=== PATIENT | female | born 1975 | race Two or more races ===

== ENCOUNTER 2025-02-03 16:16 | Emergency (ER) | payer BC, OTHER ==
[~2025-02-03] VITALS: Ht 152.4 cm; Wt 49.8 kg
--- NOTE | 2025-02-03 16:50 | ED.PDOC ---
Back pain HPI HPI Comments A 50 year old female presents to the ED c/o right hip pain that radiates down right leg. Patient states she has been experiencing right-sided lower back pain that radiates down to her right knee for the past 3 months. Patient reports her pain is worse with movement. Patient notes she has been prescribed Alpine 5/325mg and prednisone for her pain from an urgent care, but states there has been no improvement. Denies history of osteoporosis Denies any history of cancer Denies fevers chills night sweats nausea vomiting unintentional weight loss Denies IV drug use history of HIV/TB Denies abdominal "tearing" pain Denies syncope Denies urinary incontinence, saddle anesthesia, bowel incontinence, or urinary changes Denies numbness tingling of the groin or inner thigh Denies previous back procedure or surgery Chief Complaint: Lower Extremity Time Seen by MD: 16:29 Reviewed Notes: Nurses Notes, Medications, Allergies Allergies: Coded Allergies: NO KNOWN ALLERGIES (Unverified , 02/03/25) Information Source: Patient Mode of Arrival: Ambulatory Timing: Days Duration: Since onset, Days Location of Back pain: (R) Lumbar Radiates to: Anterior: (R) Buttocks, (R) Calf, (R) Thigh Radiates to: Posterior: (R) Buttocks, (R) Thigh Radiates to: Medial: (R) Buttocks, (R) Thigh Radiates to: Lateral: (R) Buttocks, (R) Thigh Severity: Moderate Prehospital treatment: None Quality: Aching, Cramping Onset: Spontaneous History of: None Modifying Factors: Movement Associated signs and symptoms: None Past Medical History PAST MEDICAL HISTORY: Denies Surgical History: Denies all surgeries TOOL MARKER History: No Pertinent TOOL MARKER History Family History Family History: Reviewed,noncontributory to illness Social History Smoker: Non-Smoker Alcohol: Denies ETOH Use Drugs: Denies Drug Use Lives In: Home Constitutional: denies: chills, diaphoresis, fatigue, fever, malaise, sweats, weakness, others EENTM: denies: blurred vision, double vision, ear bleeding, ear discharge, ear drainage, ear pain, ear ringing, eye pain, eye redness, hearing loss, mouth pain, mouth swelling, nasal discharge, nose bleeding, nose congestion, nose pain, photophobia, tearing, throat pain, throat swelling, voice changes, others Respiratory: denies: cough, hemoptysis, orthopnea, SOB at rest, shortness of breath, SOB with excertion, stridor, wheezing, others Cardiovascular: denies: chest pain, dizzy spells, diaphoresis, Dyspnea on exertion, edema, irregular heart beat, left arm pain, lightheadedness, palpitations, PND, syncope, others Gastrointestinal: denies: abdomen distended, abdominal pain, blood streaked bowels, constipated, diarrhea, dysphagia, difficulty swallowing, hematemesis, melena, nausea, poor appetite, poor fluid intake, rectal bleeding, rectal pain, vomiting, others Genitourinary: denies: abnormal vagina bleeding, burning, dyspareunia, dysuria, flank pain, frequency, hematuria, incontinence, pain, , vagina discharge, urgency, others Neurological: denies: dizziness, fainting, headache, left sided numbness, left sided weakness, numbness, paresthesia, pre-existing deficit, right sided numbness, right sided weakness, seizure, speech problems, tingling, tremors, weakness, others Musculoskeletal: reports: others (right hip pain that radiates down to right knee); denies: back pain, gout, joint pain, joint swelling, muscle pain, muscle stiffness, neck pain Integumetry: denies: bruises, change in color, change in hair/nails, dryness, laceration, lesions, lumps, rash, wounds, others Allergic/Immunocompromised: denies: Difficulty Healing, Frequent Infections, Hives, Itching, others Hematologic/Lymphatic: denies: anemia, blood clots, easy bleeding, easy bruising, swollen glands, others Endocrine: denies: excessive hunger, excessive sweating, excessive thirst, excessive urination, flushing, intolerance to cold, intolerance to heat, unexplained weight gain, unexplained weight loss, others Psychiatric: denies: anxiety, bipolar disorder, depression, hopeless, panic disorder, schizophrenia, sleepless, suicidal, others All Other Systems: Reviewed and Negative Physical Exam General Appearance: No Apparent Distress, Normal HEENT: Normal ENT Inspection, Pharynx Normal, TMs Normal Neck: Full Range of Motion, Non-Tender, Normal, Normal Inspection Respiratory: Chest Non-Tender, Lungs Clear, No Accessory Muscle Use, No Respiratory Distress, Normal Breath Sounds Cardiovascular: No Edema, No JVD, No Murmur, No Gallop, Normal Peripheral Pulses, Regular Rate/Rhythm Breast Exam: Deferred Gastrointestinal: No Organomegaly, Non Tender, No Pulsatile Mass, Normal Bowel Sounds, Soft Genitalia: Deferred Pelvic: Deferred Rectal: Deferred Extremities: No calf tenderness, Normal capillary refill, Normal inspection, Normal range of motion, Non-tender, No pedal edema Musculoskeletal : Location: Right Extremity Location: Back (No L-spine TTP noted. Normal neuro exam.), Leg (Right straight leg test positive.) Apperance: Normal Neurologic: Alert, sales and merchandising associate II-XII nml as Tested, No Motor Deficits, Normal Affect, Normal Mood, No Sensory Deficits Cerebellar Function: Normal Reflexes: Normal Skin: Dry, Normal Color, Warm Lymphatic: No Adenopathy Was a procedure done? Was a procedure done?: No Back Pain Differential Dx Differential Diagnosis: DJD, Musculoskeletal Pain, Strain Other Differential Diagnosis DDD, lumbar radiculopathy, sciatica X-Ray, Labs, Meds, VS Vital Signs Date Time Temp Pulse Resp B/P (MAP) Pulse Ox O2 Delivery O2 Flow Rate FiO2 02/03/25 17:42 100 20 96 Room Air 02/03/25 17:42 98.2 100 20 148/92 (110) 96 98.2 02/03/25 16:25 97.7 119 18 150/84 (106) 95 97.7 Current Medications Medications (Trade) Dose Ordered Sig/Hammad Route Start Time Stop Time Status Last Admin Methylprednisolone Sodium Succinate (Solu Medrol) 125 mg ONCE ONCE IM 02/03/25 16:45 02/03/25 16:48 DC 02/03/25 17:44 Ketorolac Tromethamine (Toradol Injection) 60 mg ONCE ONCE IM 02/03/25 16:45 02/03/25 16:48 DC 02/03/25 17:44 Right lower extremity venous duplex Clinical History: Leg pain Comparison: None Technique: Duplex Doppler evaluation of the deep venous system of the right lower extremity from the common femoral vein to the popliteal vein including color Doppler and spectral/pulsed waveform analysis was performed. Findings: The common femoral vein demonstrates appropriate compressibility and waveform variability. There is compressibility/patency of the great saphenous vein at the proximal thigh. The femoral vein demonstrates appropriate compressibility and waveform variabil ity. The deep femoral vein demonstrates appropriate compressibility and waveform variability. The popliteal vein demonstrates appropriate compressibility and waveform variability. There is normal compressibility at the tibioperoneal trunk. Impression: 1. No right femoropopliteal venous thrombosis. ATED BY: YANE CHRISTIAN MD DICTATED DATE/TIME: 02/03/251734 SIGNED BY: YANE CHRISTIAN MD SIGNED DATE/TIME: 02/03/251734 CC: EXAM: XY R FEMUR XRAY CLINICAL HISTORY: R/o fracture COMPARISON: None TECHNIQUE: XY R FEMUR XRAY Findings/Impression: 2 views of the right femur. There is no evidence of an acute fracture, dislocation, blastic, or lytic lesions. No radiopaque foreign bodies. No superficial soft tissue abnormalities. ATED BY: GEMMA NAVAS DO DICTATED DATE/TIME: 02/03/251736 SIGNED BY: GEMMA NAVAS DO SIGNED DATE/TIME: 02/03/251736 CC: X-Ray, Labs, Meds, VS Comment A 50 year old female presents to the ED c/o right hip pain that radiates down right leg. Patient arrives alert and oriented, ABC's intact, afebrile, vital signs stable, saturating well in room air Diagnostic imaging ordered by me and results interpreted by radiology : XR L-spine: CV venous Doppler low ext RT: Patient was given Toradol 60mg IM and Solu-Medrol 125mg IM. Tolerated med ications with no adverse reaction. Additional MDM Review of External, Non-ED records: External records reviewed. Discussion with independent historian history obtained from the patient Chronic conditions affecting care: None Social determinants of health affecting care: None Consideration of admission (observation or admission): I considered escalation of care to admission for this patient, however given the reassuring workup, the patient is safe for outpatient management. Discussion with the Radiology: No Tests considered but not performed: None Prescription medication given: Images Reviewed?: Images reviewed and evaluated by me Reevaluation 1ST: Improved Patient Education/Counseling: Diagnosis, Treatment, Need For Follow Up Family Education/Counseling: Diagnosis, Treatment, Need For Follow Up SEPSIS Sepsis Screen Physician Orders Rt Lower Dvt (02/03/25 16:45) R Femur Xray (02/03/25 16:45) Vital Signs Date Time Temp Pulse Resp B/P (MAP) Pulse Ox O2 Delivery O2 Flow Rate FiO2 02/03/25 17:42 100 20 96 Room Air 02/03/25 17:42 98.2 100 20 148/92 (110) 96 98.2 02/03/25 16:25 97.7 119 18 150/84 (106) 95 97.7 Medications Medications Dose Ordered Sig/Hammad Route Start Time Stop Time Status Last Admin Dose Admin Ketorolac Tromethamine 60 mg ONCE ONCE IM 02/03/25 16:45 02/03/25 16:48 DC 02/03/25 17:44 Methylprednisolone Sodium Succinate 125 mg ONCE ONCE IM 02/03/25 16:45 02/03/25 16:48 DC 02/03/25 17:44 Departure 1 Departure Time of Disposition: 17:52 Impression: Primary Impression: Lumbar radiculopathy Disposition: HOME / SELF CARE / HOMELESS Condition: Stable Additional Instructions: Follow up with PCP in 1-2 days. Take medications as prescribed. Return to ED for any new or worsening symptoms. e-Prescriptions Naproxen (Naproxen) 500 Mg Tab 500 MG PO BIDPC for 14 Days, #28 TAB 0 Refills Prov: JHONATAN MARTINEZ SKILL TRAINING PROGRAM COORDINATOR 02/03/25 Discharged With: Self Critical Care Note Critical Care Time?: No Stability Stability form required: No I personally scribed for JHONATAN MARTINEZ SKILL TRAINING PROGRAM COORDINATOR ([email or web address]) on 02/03/25 at 16:50. Electronically submitted by Manohar Abraham ([employer]). I personally scribed for JHONATAN MARTINEZ SKILL TRAINING PROGRAM COORDINATOR ([email or web address]) on 02/03/25 at 17:28. Electronically submitted by Manohar Abraham ([email or web address]). I personally scribed for JHONATAN MARTINEZ SKILL TRAINING PROGRAM COORDINATOR ([email or web address]) on 02/03/25 at 17:40. Electronically submitted by Manohar Abraham ([employer]). I personally scribed for JHONATAN MARTINEZ SKILL TRAINING PROGRAM COORDINATOR ([email or web address]) on 02/03/25 at 17:42. Electronically submitted by Manohar Abraham ([employer]). JHONATAN MARTINEZ SKILL TRAINING PROGRAM COORDINATOR Feb 03, 2025 16:50
--- NOTE | 2025-02-03 17:37 | DVH ---
Right lower extremity venous duplex Clinical History: Leg pain Comparison: None Technique: Duplex Doppler evaluation of the deep venous system of the right lower extremity from the common femo ral vein to the popliteal vein including color Doppler and spectral/pulsed waveform analysis was perf ormed. Findings: The common femoral vein demonstrates appropriate compressibility and waveform variability. There is compressibility/patency of the great saphenous vein at the proximal thigh. The femoral vein demonstrates appropriate compressibility and waveform variability. The deep femoral vein demonstrates appropriate compressibility and waveform variability. The popliteal vein demonstrates appropriate compressibility and waveform variability. There is normal compressibility at the tibioperoneal trunk. Impression: 1. No right femoropopliteal venous thrombosis.
--- NOTE | 2025-02-03 17:40 | DVH ---
EXAM: XY R FEMUR XRAY CLINICAL HISTORY: R/o fracture COMPARISON: None TECHNIQUE: XY R FEMUR XRAY Findings/Impression: 2 views of the right femur. There is no evidence of an acute fracture, dislocation, blastic, or lytic lesions. No radiopaque foreign bodies. No superficial soft tissue abnormalities.
[2025-02-03 17:42] VITALS: BP 148/92; PULSE 100; RESP 20; TEMP 98.2; O2SAT 96
[2025-02-03] MEDS: methylPREDNISolone SOD SUCC 125 MG/2 ML VL IM ONE (17:44)
[2025-02-03] MEDS: KETOROLAC TROMETH 60MG/2ML VIAL IM ONE (17:44)
[2025-02-03] MEDS ORDERED: NAPR-746 PO (17:58)
== END 2025-02-03 18:05 | disposition home or self-care (01) ==
LOC: ER 16:16
DX: M54.16 Radiculopathy, lumbar region (principal); M25.551 Pain in right hip
CPT/HCPCS: 73552; 93971; 96372; 99285; J1885; J2919